=== PATIENT | female | born 1955 | race Caucasian/White ===

== ENCOUNTER → 2022-08-20 | Outpatient (CLI) | payer SELFPAY ==
[2022-08-20 15:53] LABS: CREATININE, SERUM 0.84 mg/dL (0.57-1.11)
== END ==
LOC: CT 14:50
PROVIDERS: ATTEND Internal Medicine Interventional Cardiology
DX: R07.9 Chest pain, unspecified (principal); I48.91 Unspecified atrial fibrillation; I25.10 Atherosclerotic heart disease of native coronary artery without angina pectoris; I28.8 Other diseases of pulmonary vessels
CPT/HCPCS: 36415; 71275; 82565; 84520